=== PATIENT | male | born 1940 | race Caucasian/White ===

== ENCOUNTER 2024-06-17 19:45 | Observation (INO) | payer MEDICARE, SELFPAY ==
[2024-06-17 19:55] VITALS: BP 134/58; PULSE 83; RESP 17; TEMP 37; O2SAT 96
--- NOTE | 2024-06-17 19:56 | ECG_ITS ---
Test Reason : NEAR SYNCOPE Blood Pressure : / mmHG Vent. Rate : 091 BPM Atrial Rate : 092 BPM P-R Int : 144 ms QRS Dur : 104 ms QT Int : 368 ms P-R-T Axes : 058 000 079 degrees QTc Int : 452 ms Normal sinus rhythm Normal ECG When compared with ECG of 27-OCT-2003 15:25, No significant change was found Referred By: Generic ED Physician Electronically Signed By:ANGELA MCGINNIS MD
[2024-06-17 20:07] LABS: MANUAL DIFF FLAG NO
[2024-06-17 20:08] LABS: Basophils Absolute Auto 0.1 X10*3/uL (0.0-0.2); Basophils Percent Auto 0.7 % (0-2); Eosinophils Absolute Auto 0.3 X10*3/uL (0.0-0.4); Eosinophils Percent Auto 1.9 % (0-4); Hemoglobin 10.2 g/dl (14.0-18.0); Imm Gran Abs Auto 0.64 X10*3/uL (0.00-0.03); Imm Gran Pct Auto 3.7 % (0.0-0.4); Lymphocytes Absolute Auto 3.2 X10*3/uL (1.2-4.9); Lymphocytes Percent Auto 18.9 % (20-40); Mean Corpuscular Hemoglobin 31.3 pg (27.0-33.0); Mean Platelet Volume 8.6 fL (9.4-12.4); Monocytes Absolute Auto 1.1 X10*3/uL (0.1-1.2); Monocytes Percent Auto 6.3 % (2-11); Neutrophils Absolute Auto 11.7 x10*3/uL (2.0-8.3); Neutrophils Percent Auto 68.5 % (45-73); Platelet Count 421 X10*3/uL (160-400); Red Blood Count 3.26 X10*6/uL (4.60-5.80); Red Cell Distribution Width 13.5 % (11.0-16.0); White Blood Count 17.1 X10*3/uL (4.8-10.8)
[2024-06-17 20:10] VITALS: BP 134/78; PULSE 80; O2SAT 99; BMI 28.1
[2024-06-17 20:24] LABS: Alanine Aminotransferase 59 U/L (0-40); Albumin Level 3.5 g/dL (3.5-5.0); Alkaline Phosphatase 57 U/L (39-117); Anion Gap 12 (12-20); Aspartate Amino Transferase 31 U/L (5-37); Bilirubin Total 0.3 mg/dL (0.0-1.0); Blood Urea Nitrogen 26 mg/dL (9-16); Calcium 8.7 mg/dL (8.4-10.2); Carbon Dioxide 28 mmol/L (22-29); Chloride 102 mmol/L (96-108); Estimated Glomerular Filt Rate 39; Glucose Random 226 mg/dL (60-115); Potassium 5.2 mmol/L (3.3-5.1); Sodium 137 mmol/L (135-145); Total Protein 6.2 g/dL (6.5-8.0)
[2024-06-17 20:31] LABS: Troponin-I High Sensitivity 33.6 ng/L (<3.5-35.0)
[2024-06-17 20:47] LABS: B Type Natriuretic Peptide 172 pg/mL (<100)
--- NOTE | 2024-06-17 21:55 | ED.GENADULT ---
HPI - General Adult General Chief complaint: Arrhythmia/Palpitations Stated complaint: near syncope,hx afib Time Seen by Provider: 06/17/24 20:10 History of Present Illness HPI narrative: Patient is an elderly male with a history of previous atrial fibrillation was on Eliquis up until about a week ago. History of having a bladder growth. Positive history of diabetes, smoking, hypertension. Presented today while sitting in the kitchen table patient got very lightheaded. Family took down his blood pressure it was question 78/75. Was also noted to have a heart rate of approximately 140. Patient's family called EMS. On EMS arrival the symptoms already improved in the heart rate was never that high patient came in for further evaluation denies any blood in the stool. Denies any fever chills. Denies any chest pain or diaphoresis. Denies any leg swelling. Patient is from home. Related Data Allergies Allergy/AdvReac Type Severity Reaction Status Date / Time atorvastatin [Lipitor] Allergy Unknown Unknown Verified 06/17/24 20:15 No Known Allergies Allergy Unverified 04/16/20 14:38 [No Known Allergies*] Review of Systems Review of Systems: Positive palpitation Positive weakness My system PMFSH Past Medical History Attestation statement: The following information was validated with the patient. Social History Social History Smoked in Last 30 Days: Yes Use of substances other than those prescribed or required for medical reasons: No Advance Directives: No Advance Directives Information Provided: No Do you have a plan to hurt others: No Plan Physical Exam ED Vital Signs: Vital Signs - 24 hr 06/17/24 19:55 06/17/24 22:16 Temperature 98.6 F 97.8 F Pulse Rate 83 81 Respiratory Rate 17 17 Blood Pressure 134/58 L 140/66 H Pulse Oximetry 96 95 Oxygen Delivery Method Room Air Room Air BMI result Body Mass Index 28.1 Appearance: Alert. Oriented X3. No acute distress. Eyes: Pupils equal, round and reactive to light. ENT: Pharynx normal. Neck: Normal inspection. Neck supple. No lymph nodes noted. No crepitus CVS: Normal heart rate and rhythm. Pulses normal. Normal S1 and S2 Respiratory: No respiratory distress. Breath sounds normal. No Wheezing. No rales Abdomen: Soft and nontender. No rigidity. No distention. good BS x4 Skin: Skin warm and dry. Normal skin color. Normal skin turgor. Extremities: No lower extremity edema. Neurovascular intact to all extremities. No Lacerations. No Rash Neuro: Oriented X 3. No motor deficit. No sensory deficit. Moving all extermities. No slurred speech Medical Decision Making Medical Decision Making MDM Narrative: Positive episodes of hypotension with increased heart rate. Will most likely require admission as patient had near syncopal episode. Patient creatinine was mildly elevated there is no baseline to compare. Patient's BNP is normal at 170. Hemoglobin is 10.2 no gross anemia. His troponin is 33.6. Differential Diagnosis Differential Diagnoses: The differential diagnosis associated with the presentation includes ACS, arrhythmia Admission/Observation Consideration of admission/observation: Escalation of care including admission/observation considered Consult Healthcare Provider Management of the patient was discussed with: Hospitalist Lab Data [facility] Lab Attestation statement: I reviewed the patient's lab results. 06/17/24 20:02 06/17/24 20:02 Labs: Lab Results 06/17/24 Range/Units 20:02 WBC 17.1 H (4.8-10.8) X10*3/uL RBC 3.26 L (4.60-5.80) X10*6/uL Hgb 10.2 L (14.0-18.0) g/dl Hct 30.0 L (42.0-52.0) % MCV 92.0 (80.0-98.0) fL MCH 31.3 (27.0-33.0) pg MCHC 34.0 (31.0-36.0) g/dl RDW 13.5 (11.0-16.0) % Plt Count 421 H (160-400) X10*3/uL MPV 8.6 L (9.4-12.4) fL Immature Gran % (Auto) 3.7 H (0.0-0.4) % Neut % (Auto) 68.5 (45-73) % Lymph % (Auto) 18.9 L (20-40) % [place] % (Auto) 6.3 (2-11) % Eos % (Auto) 1.9 (0-4) % Baso % (Auto) 0.7 (0-2) % Lymph # (Auto) 3.2 (1.2-4.9) X10*3/uL [place] # (Auto) 1.1 (0.1-1.2) X10*3/uL Eos # (Auto) 0.3 (0.0-0.4) X10*3/uL Baso # (Auto) 0.1 (0.0-0.2) X10*3/uL Abs Immat Gran (auto) 0.64 H (0.00-0.03) X10*3/uL Absolute Neuts (auto) 11.7 H (2.0-8.3) x10*3/uL Absolute Nucleated RBC 0.000 (0.0-0.012) X10*3/uL Nucleated RBC % (auto) 0.0 (0.0-0.2) /100WBC Sodium 137 (135-145) mmol/L Potassium 5.2 H (3.3-5.1) mmol/L Chloride 102 (96-108) mmol/L Carbon Dioxide 28 (22-29) mmol/L Anion Gap 12 (12-20) BUN 26 H (9-16) mg/dL Creatinine 1.70 H (0.5-1.4) mg/dL Estim Creat Clear Calc 38.0 Estimated GFR 39 Random Glucose 226 H (60-115) mg/dL Calcium 8.7 (8.4-10.2) mg/dL Total Bilirubin 0.3 (0.0-1.0) mg/dL AST 31 (5-37) U/L ALT 59 H (0-40) U/L Alkaline Phosphatase 57 (39-117) U/L Troponin I High Sens 33.6 (<3.5-35.0) ng/L B-Natriuretic Peptide 172 H (<100) pg/mL Total Protein 6.2 L (6.5-8.0) g/dL Albumin 3.5 (3.5-5.0) g/dL Independent Interpretation I performed an independent interpretation of an: EKG (Sinus heart rate is 90 ND QRS QTC normal no acute ST segment elevation) Radiology Impression Discussion of test interpretation with radiology: I have reviewed the radiologist's reading. Independent Historian Clinical information obtained from an independent historian. History obtained from or confirmed by: Spouse External Record Review External record reviewed: Inpatient record Chronic Conditions Patient?s care impacted by: Hypertension Discharge Plan Discharge Clinical Impression: Near syncope Patient Disposition: Admitted As Inpatient Print Language: Haitian
[2024-06-17 22:16] VITALS: BP 140/66; PULSE 81; RESP 17; TEMP 36.6; O2SAT 95
--- NOTE | 2024-06-17 23:10 | P.HPHOSP_ITS ---
History of Present Illness Date of Service: 06/17/24 Chief Complaint: Palpitations This is a 84-year-old male with pertinent history of congestive heart failure with reduced ejection fraction, atrial fibrillation on Eliquis, mtg-pygjrej-ebujdctmb diabetes mellitus, mixed hyperlipidemia, BPH, bladder mass who presents to the emergency department for evaluation of palpitations. Patient states while he was sitting in chair he had an episode of dizziness. He felt like he would pass out. Endorses associated palpitations. States his blood pressure was low and the daughter states that the blood pressure was 78/75 with heart rate in the 140s. EMS was called but upon EMS arrival blood pressure and heart rate were within normal limits. No rhythmic jerking movement of extremities or tongue bite. No chest pain. Patient states this has happened before but the blood pressure today was lower than before. He was diagnosed with UTI 3 days prior to presentation and started on p.o. cefpodoxime. Also has a bladder mass and is scheduled for cystoscopy with biopsy end of the week. No fever, chills, cough, nausea, vomiting, abdominal pain or changes in bowel habits. In the emergency department, WBC 17.1 and creatinine 1.7 Review of Systems 2 Constitutional: Constitutional: Reports fatigue and Reports malaise ENT: Reports dizziness Cardiovascular: Cardiovascular: Reports rapid heart rate Respiratory: Respiratory: Reports no additional respiratory complaints Gastrointestinal: Gastrointestinal: Reports no additional gastrointestinal complaints Genitourinary: Genitourinary: Reports no additional male genitourinary complaints Neurologic: Reports dizziness Endocrine: Endocrine: Reports fatigue [facility] Medical History Mixed hyperlipidemia BPH (benign prostatic hyperplasia) Systolic congestive heart failure Non-insulin dependent type 2 diabetes mellitus Atrial fibrillation Bladder mass Pertinent family history: Not significant due to age Social History Smoked in Last 30 Days: Yes Use of substances other than those prescribed or required for medical reasons: No Advance Directives: No Advance Directives Information Provided: No Do you have a plan to hurt others: No Plan Meds Allergies Allergy/AdvReac Type Severity Reaction Status Date / Time atorvastatin [Lipitor] Allergy Unknown Unknown Verified 06/17/24 20:15 No Known Allergies Allergy Unverified 04/16/20 14:38 [No Known Allergies*] Active Medications: Current Medications Sodium Chloride (Ns) 500 mls @ 500 mls/hr IV .Q1H BRYAN Stop: 06/18/24 00:14 Sodium Zirconium Cyclosilicate (Sodium Zirconium Cyclosilicate 10 Gm Powd.Pack) 10 gm PO ONCE ONE Stop: 06/17/24 23:09 Physical Exam 2 Vital Signs and Narrative: Vital Signs: Last Vital Signs Temp 97.8 F 06/17/24 22:16 Pulse 81 06/17/24 22:16 Resp 17 06/17/24 22:16 BP 140/66 H 06/17/24 22:16 Pulse Ox 95 06/17/24 22:16 O2 Del Method Room Air 06/17/24 22:16 BMI result Body Mass Index 28.1 Elderly male lying in bed in no distress Neck supple, no JVD Irregularly irregular, S1-S2 heard Regular breath sounds bilaterally, no wheezing or crackles appreciated Abdomen soft nontender, no guarding, no rigidity, Dowlign catheter in place Patient is awake, alert and oriented to self, place, time and person ; no focal motor deficit Psych: Normal mood No pedal edema Results Labs 06/17/24 20:02 06/17/24 20:02 Labs: Laboratory Results - last 24 hr 06/17/24 20:02 MCV 92.0 MCH 31.3 MCHC 34.0 RDW 13.5 Plt Count 421 H MPV 8.6 L Immature Gran % (Auto) 3.7 H Neut % (Auto) 68.5 Lymph % (Auto) 18.9 L [place] % (Auto) 6.3 Eos % (Auto) 1.9 Baso % (Auto) 0.7 Lymph # (Auto) 3.2 [place] # (Auto) 1.1 Eos # (Auto) 0.3 Baso # (Auto) 0.1 Abs Immat Gran (auto) 0.64 H Absolute Neuts (auto) 11.7 H Absolute Nucleated RBC 0.000 Nucleated RBC % (auto) 0.0 Anion Gap 12 Estim Creat Clear Calc 38.0 Estimated GFR 39 Random Glucose 226 H Calcium 8.7 Total Bilirubin 0.3 AST 31 ALT 59 H Alkaline Phosphatase 57 Troponin I High Sens 33.6 B-Natriuretic Peptide 172 H Total Protein 6.2 L Albumin 3.5 Assessment and Plan (1) Near syncope: Status: Acute (2) Palpitations: Status: Acute Plan This is a 84-year-old male with pertinent history of congestive heart failure with reduced ejection fraction, atrial fibrillation on Eliquis, rho-xyyukyz-xuuqwkhcf diabetes mellitus, mixed hyperlipidemia, BPH, bladder mass who presents to the emergency department for evaluation of palpitations. #. Palpitations with presyncope: Will admit patient with cardiac monitoring for observation. Consulted Cardiology, appreciate assistance #. Gyh-xjjpkjg-mokzacafm diabetes mellitus with hyperglycemia: Initiating Accu-Cheks with sliding scale insulin #. Elevated creatinine: Unknown baseline. LUIZ versus CKD. Monitor creatinine urine output with IV crystalloid resuscitation. Avoid nephrotoxins #. Hyperkalemia: Given Lokelma #. Leukocytosis: Likely reactive. Obtaining x-ray and repeat UA. Is on cefpodoxime for recently diagnosed UTI #. Congestive heart failure with reduced EF: No decompensation during admission. #. Atrial fibrillation: Rate controlled in the ER. On Eliquis #. BPH: On Flomax #. Mixed hyperlipidemia: On statin #. Bladder mass: Is scheduled for cystoscopy with biopsy on 06/21 #. UTI: Recently diagnosed with UTI on 06/14 and is on cefpodoxime Med rec pending DVT prophylaxis: Eliquis Full code Quality Stroke Does the patient have a stroke diagnosis?: No VTE Prior VTE?: No VTE Risk Level:: Medical - moderate - high VTE Device Contraindication: Treatment Not Indicated VTE Drug Contraindication: N/A - Med Ordered
[2024-06-17] MEDS: Sodium Zirconium Cyclosilicate 10 GM POWD.PACK PO (23:46)
--- NOTE | 2024-06-18 00:02 | PC.NURSE ---
Pt aox4 resting at the bedside. Medicated with Lokelma as ordered. Pt refuse to have IV line placed and start fluids. Monitoring is ongoing.
[2024-06-18 02:50] LABS: Appearance Urine Clear; Color Urine Yellow; Glucose Urine UA Negative (Negative); Leukocyte Esterase Urine Small (1+) (Negative); Nitrite Urine Negative (Negative); Specific Gravity - Urine 1.015 (1.005-1.025); UMIC TRIGGER UACC YES; Urine Blood Large (3+) (Negative); Urine Ketones Negative (Negative); Urine Protein 100 (2+) mg/dL (Neg-Trace)
[2024-06-18 03:15] LABS: Bacteria Urine 4+ (None Seen); UACC Culture Trigger YES
[2024-06-18 05:37] LABS: MANUAL DIFF FLAG NO
[2024-06-18 05:40] LABS: Basophils Absolute Auto 0.1 X10*3/uL (0.0-0.2); Basophils Percent Auto 0.6 % (0-2); Eosinophils Absolute Auto 0.5 X10*3/uL (0.0-0.4); Eosinophils Percent Auto 3.2 % (0-4); Hematocrit 29.1 % (42.0-52.0); Hemoglobin 9.6 g/dl (14.0-18.0); Imm Gran Abs Auto 0.34 X10*3/uL (0.00-0.03); Imm Gran Pct Auto 2.2 % (0.0-0.4); Lymphocytes Absolute Auto 3.8 X10*3/uL (1.2-4.9); Lymphocytes Percent Auto 24.7 % (20-40); Mean Corpuscular Volume 90.9 fL (80.0-98.0); Mean Platelet Volume 8.7 fL (9.4-12.4); Monocytes Percent Auto 6.5 % (2-11); Neutrophils Absolute Auto 9.7 x10*3/uL (2.0-8.3); Neutrophils Percent Auto 62.8 % (45-73); Platelet Count 401 X10*3/uL (160-400); Red Cell Distribution Width 13.4 % (11.0-16.0); White Blood Count 15.5 X10*3/uL (4.8-10.8)
[2024-06-18 05:53] LABS: Anion Gap 14 (12-20); Blood Urea Nitrogen 25 mg/dL (9-16); Carbon Dioxide 25 mmol/L (22-29); Chloride 104 mmol/L (96-108); Creatinine Clr Calc Pharmacy 55.2; Estimated Glomerular Filt Rate 60; Glucose Random 141 mg/dL (60-115); Potassium 4.3 mmol/L (3.3-5.1); Sodium 139 mmol/L (135-145)
[2024-06-18 07:40] VITALS: BP 155/66; PULSE 79; RESP 16; TEMP 37; O2SAT 98
[2024-06-18 07:46] LABS: Glucose, Whole Blood 147 mg/dL (60-115)
--- NOTE | 2024-06-18 07:53 | PC.NURSE ---
Pt continues to refuse IV line. Pt educated on need to give medications through IV line, continues to refuse. Will reassess.
[2024-06-18 09:37] VITALS: BP 165/74; PULSE 75
[2024-06-18] MEDS: Metoprolol Succinate ER 100 MG TAB.ER.24H PO (09:37)
--- NOTE | 2024-06-18 09:39 | PHA.MEDREC ---
Addendum entered by Francisco Churchill 06/18/24 09:55: reviewed Original Note: Pharmacy Consult ? Medication Reconciliation Pharmacy has completed the medication reconciliation. Spoke to patient and at bedside to confirm med list. had a list of patients medications. Patient states he is no longer taking Tamsulosin 0.4 mg. Patient states he is scheduled for surgery on Monday06/21/24 so he was to stop his medications 10 days prior to surgery. Eliquis was put on hold last taken 06/04/24. The patient has only been taking Cefpodoxime 200 mg, End date 06/24 Metoprolol succ 100 mg , Trillegy Ellipta and Entreso 24mg/26mg
--- NOTE | 2024-06-18 10:53 | PM.CNCAR ---
History of Present Illness History of Present Illness Date of Service: 06/18/24 Consult reason: other ( near-syncope, tachycardia) Chief complaint: Palpitations Narrative: I was consulted to see Leonardo in cardiology consultation today as he came to the hospital yesterday after having rapid onset heart rate in the 140s and low blood pressure and got lightheaded. Patient 84-year-old male with prior history of paroxysmal atrial fibrillation currently not on any antiarrhythmic drug, heart failure with improved ejection fraction with most recent echocardiogram 2 years ago at [facility] showing LVEF of 50-55%, noninsulin requiring diabetes. Has been followed by [facility] and recently had seen nurse practitioner in cardiology clinic and had complain of increased leg swelling and weight gain and was prescribed torsemide 20 mg. He said the 1st time he took torsemide he had a significant diuresis and lost about 9 lb at home and got lightheaded at that point time. Subsequently yesterday again took torsemide 20 mg as he was retaining fluid and then in the afternoon had rapid heart rate along with lightheadedness. By time EMS came to the home his heart rate and blood pressure had improved. He said daughter recorded blood pressure in the 70s. He had no syncopal episodes. He has been taking all his medications. He is currently wearing event monitor and was wearing it while he was having any event but has not heard back anything from the monitoring company or from his frit mixer and burner's office. He has been taking his oral anticoagulation regularly. Review of Systems Constitutional: Constitutional: Reports no additional constitutional complaints Cardiovascular: Cardiovascular: Reports rapid heart rate, Reports leg edema, Reports lightheadedness, Reports palpitations and Reports dyspnea on exertion Respiratory: Respiratory: Reports no additional respiratory complaints and Reports dyspnea on exertion Gastrointestinal: Gastrointestinal: Reports no additional gastrointestinal complaints Genitourinary: Genitourinary: Reports no additional male genitourinary complaints Musculoskeletal: Musculoskeletal: Reports no additional musculoskeletal complaints Integumentary/Breasts: Skin/Breast: Reports system reviewed and no additional complaints, except as docu Psychiatric: Psychiatric: Reports no additional psychiatric complaints Endocrine: Endocrine: Reports palpitations PMFSH Past Medical History Medical History Mixed hyperlipidemia BPH (benign prostatic hyperplasia) Systolic congestive heart failure Non-insulin dependent type 2 diabetes mellitus Atrial fibrillation Bladder mass Social History Social History Patient Tobacco Use Status: Tobacco use Unknown Smoked in Last 30 Days: Yes Use of substances other than those prescribed or required for medical reasons: No Advance Directives: No Advance Directives Information Provided: No Do you have a plan to hurt others: No Plan Nutrition Risks: No Nutritional Risk Meds Allergies Allergy/AdvReac Type Severity Reaction Status Date / Time atorvastatin [Lipitor] Allergy Unknown Unknown Verified 06/17/24 20:15 No Known Allergies Allergy Verified 06/18/24 08:12 [No Known Allergies*] Active Medications: Current Medications Acetaminophen (Acetaminophen 325 Mg Tablet) 650 mg PO Q6H PRN PRN Reason: Pain, Mild (Pain Scale 1-3), fever or headache Albuterol Sulfate (Albuterol Sulfate 90 Mcg 8 Gm Inhaler) 1 puff INHALE QID PRN PRN Reason: Shortness Of Breath Or Wheezing Apixaban (Apixaban 5 Mg Tablet) 5 mg PO BID [facility] Last Admin: 06/18/24 09:38 Dose: Not Given Aspirin (Aspirin Enteric Coated 81 Mg Tablet.Dr) 81 mg PO DAILY [facility] Atorvastatin Calcium (Atorvastatin Calcium 40 Mg Tablet) 40 mg PO BEDTIME [facility] Calcium Carbonate (Calcium Carbonate 750 Mg Tab.Chew) 750 mg PO Q4H PRN PRN Reason: Heartburn Cyanocobalamin (Cyanocobalamin (Vitamin B-12) 500 Mcg Tablet) 500 mcg PO DAILY [facility] Doxazosin Mesylate (Doxazosin Mesylate 2 Mg Tablet) 4 mg PO BEDTIME [facility]; Protocol Fluticasone/Umeclidinium/Vilanterol (Fluticasone/Umeclidinium/Vilanterol 200/62.5/25 Blst.W.Dev) 1 puff INHALE DAILY [facility] Glipizide (Glipizide 5 Mg Tablet) 5 mg PO BID [facility] Glucose (Glucose Gel 15 Gm Gel..Gram.) 15 gm PO Q15M PRN; Protocol PRN Reason: per Hypoglycemia Standing Ord. Dextrose (D10) 250 mls @ 750 mls/hr IV Q15M PRN; Protocol PRN Reason: per Hypoglycemia Standing Ord. Insulin Human Lispro (Insulin Lispro 100 Unit/Ml 3 Ml Vial) 0 unit SUBCUT QIDACHS [facility]; Protocol Last Admin: 06/18/24 07:47 Dose: Not Given Magnesium Hydroxide (Milk Of Magnesia 30 Ml Oral.Susp) 30 ml PO DAILY PRN PRN Reason: Constipation Melatonin (Melatonin 3 Mg Tablet) 6 mg PO BEDTIME PRN PRN Reason: Insomnia Metoprolol Succinate (Metoprolol Succinate Er 100 Mg Tab.Er.24h) 100 mg PO DAILY [facility]; Protocol Last Admin: 06/18/24 09:37 Dose: 100 mg Multivitamins/Vitamin C (Multivitamin Tablet) 1 tab PO DAILY [facility] Non-Formulary Medication (Cefpodoxime) 200 mg PO BID [facility] Ondansetron HCl (Ondansetron Hcl 4 Mg/2 Ml Vial) 4 mg IVPUSH Q8H PRN PRN Reason: Nausea and Vomiting Sacubitril/Valsartan (Sacubitril/Valsartan 1 Tab Tablet) 1 tab PO BID [facility]; Protocol Sodium Chloride (0.9 % Sodium Chloride Flush 3 Ml Syringe) 3 ml IVFLUSH QSHIFT [facility] Last Admin: 06/18/24 09:33 Dose: Not Given Torsemide (Torsemide 20 Mg Tablet) 20 mg PO DAILY PRN; Protocol PRN Reason: Weight Gain Home Medications ?Medication ?Instructions ?Recorded ?Confirmed ?Last Taken ?Type albuterol sulfate 90 mcg/actuation 1 inh inhalation QID PRN Shortness 06/18/24 Unknown History aerosol inhaler (Ventolin HFA) Of Breath Or Wheezing apixaban 5 mg tablet (Eliquis) 5 mg BID 06/18/24 06/04/24 History aspirin 81 mg tablet,delayed 81 mg PO DAILY 06/18/24 06/04/24 History release cefpodoxime 200 mg tablet 200 mg PO BID 06/18/24 06/18/24 06/16/24 History cyanocobalamin (vitamin B-12) 500 500 mcg PO DAILY 06/18/24 Unknown History mcg tablet (Vitamin B-12) doxazosin 4 mg tablet 4 mg BEDTIME 06/18/24 Unknown History fluticasone fur. 200 mcg-umeclid 1 ea inhalation DAILY 06/18/24 06/16/24 History 62.5 mcg-vilant 25 mcg inhalat.powder (Trelegy Ellipta) glipizide 5 mg tablet 5 mg PO BID 06/18/24 Unknown History metoprolol succinate 100 mg 100 mg PO BEDTIME 06/18/24 06/18/24 06/16/24 History tablet,extended release 24 hr multivitamin 1 tab PO DAILY 06/18/24 Unknown History rosuvastatin 10 mg tablet 10 mg PO BEDTIME 06/18/24 Unknown History sacubitril 24 mg-valsartan 26 mg 1 tab PO BID 06/18/24 06/18/24 Unknown History tablet (Entresto) spironolactone 25 mg tablet 25 mg PO DAILY 06/18/24 06/16/24 History torsemide 20 mg tablet 20 mg PO DAILY PRN Weight Gain 06/18/24 Unknown History Physical Exam Vital Signs: Vital Signs: Last Vital Signs Temp 98.6 F 06/18/24 07:40 Pulse 75 06/18/24 09:37 Resp 16 06/18/24 07:40 BP 165/74 H 06/18/24 09:37 Pulse Ox 98 06/18/24 07:40 O2 Del Method Room Air 06/18/24 07:40 BMI result Body Mass Index 28.1 Const: General: cooperative, comfortable, no acute distress, alert, awake and Physically active Nutritional Appearance: average body habitus Orientation/consciousness: patient oriented x3 Limitations: no limitations HEENT: Head: Yes normocephalic and Yes atraumatic Neck: Neck: Yes trachea midline, Yes supple and Yes no JVD Resp: Effort & Inspection: normal respiratory effort Auscultation: clear to auscultation bilaterally Cardio: Jugular venous distension: no JVD Palpation: normal PMI Rate: regular rate Rhythm: regular rhythm Heart sounds: S1 normal heart sound present, S2 normal heart sound present, no click, no gallops and no murmurs GI: Auscultation: normal bowel sounds Skin: General skin exam: no rashes or lesions noted Neuro: General: patient oriented x3 and no focal motor deficits Extrem: General: Yes no clubbing, cyanosis or edema Objective Labs and Meds 06/18/24 05:23 06/18/24 05:23 Lab results: Laboratory Results - last 24 hr 06/17/24 06/18/24 06/18/24 20:02 02:45 05:23 WBC 17.1 H 15.5 H RBC 3.26 L 3.20 L Hgb 10.2 L 9.6 L Hct 30.0 L 29.1 L MCV 92.0 90.9 MCH 31.3 30.0 MCHC 34.0 33.0 RDW 13.5 13.4 Plt Count 421 H 401 H MPV 8.6 L 8.7 L Immature Gran % (Auto) 3.7 H 2.2 H Neut % (Auto) 68.5 62.8 Lymph % (Auto) 18.9 L 24.7 [place] % (Auto) 6.3 6.5 Eos % (Auto) 1.9 3.2 Baso % (Auto) 0.7 0.6 Lymph # (Auto) 3.2 3.8 [place] # (Auto) 1.1 1.0 Eos # (Auto) 0.3 0.5 H Baso # (Auto) 0.1 0.1 Abs Immat Gran (auto) 0.64 H 0.34 H Absolute Neuts (auto) 11.7 H 9.7 H Absolute Nucleated RBC 0.000 0.000 Nucleated RBC % (auto) 0.0 0.0 Sodium 137 139 Potassium 5.2 H 4.3 Chloride 102 104 Carbon Dioxide 28 25 Anion Gap 12 14 BUN 26 H 25 H Creatinine 1.70 H 1.17 Estim Creat Clear Calc 38.0 55.2 Estimated GFR 39 60 POC Glucose Random Glucose 226 H 141 H Calcium 8.7 9.0 Total Bilirubin 0.3 AST 31 ALT 59 H Alkaline Phosphatase 57 Troponin I High Sens 33.6 B-Natriuretic Peptide 172 H Total Protein 6.2 L Albumin 3.5 Urine Color Yellow Urine Appearance Clear Urine pH 7.0 Ur Specific [place] 1.015 Urine Protein 100 (2+) H Urine Glucose (UA) Negative Urine Ketones Negative Urine Blood Large (3+) H Urine Nitrite Negative Ur Leukocyte Esterase Small (1+) H Urine RBC 11-20 H Urine WBC 6-10 H Ur Squamous Epith Cells 3-5 Urine Bacteria 4+ Hyaline Casts 11-06/18/24 07:39 WBC RBC Hgb Hct MCV MCH MCHC RDW Plt Count MPV Immature Gran % (Auto) Neut % (Auto) Lymph % (Auto) [place] % (Auto) Eos % (Auto) Baso % (Auto) Lymph # (Auto) [place] # (Auto) Eos # (Auto) Baso # (Auto) Abs Immat Gran (auto) Absolute Neuts (auto) Absolute Nucleated RBC Nucleated RBC % (auto) Sodium Potassium Chloride Carbon Dioxide Anion Gap BUN Creatinine Estim Creat Clear Calc Estimated GFR POC Glucose 147 H Random Glucose Calcium Total Bilirubin AST ALT Alkaline Phosphatase Troponin I High Sens B-Natriuretic Peptide Total Protein Albumin Urine Color Urine Appearance Urine pH Ur Specific [place] Urine Protein Urine Glucose (UA) Urine Ketones Urine Blood Urine Nitrite Ur Leukocyte Esterase Urine RBC Urine WBC Ur Squamous Epith Cells Urine Bacteria Hyaline Casts Assessment and Plan (1) Palpitations: Status: Acute patient with symptoms of palpitation rapid heart rate along with low blood pressure near-syncope. Possibility of recurrent atrial arrhythmias such as atrial flutter / fibrillation is likely. Ventricular arrhythmias a less likely. He was very event monitor while he was having these symptoms and this should be extremely helpful. His near-syncope might have been due to low stroke volume from over diuresis. I have advised him to reduce his torsemide when needed to 10 mg and/or switch to lesser reporting diuretic such as furosemide 20 mg as needed. See below. Further treatment based on finding of event monitoring. (2) Paroxysmal atrial fibrillation: Status: Acute Prior history of atrial fibrillation, could have recurrent atrial fibrillation flutter. Event monitor findings will help for further management. May need an antiarrhythmic drug therapy. Continue full oral anticoagulation Eliquis. Avoidance of stimulants was discussed. (3) Heart failure with improved ejection fraction (HFimpEF): Status: Acute Heart failure with improved ejection fraction with recent redevelopment of heart failure syndrome. I would think that if he is using p.r.n. diuretic use a less reported diuretic such as furosemide. Continue other neurohormonal modulators such as Entresto, metoprolol, spironolactone as prescribed. Can consider use of SGLT2 inhibitor therapy. Encouraged to continue to follow-up with his frit mixer and burner's office. Will sign off from care. Patient can be discharged home from our perspective Procedures Date of Service Date of Service: 06/18/24
[2024-06-18 11:43] VITALS: BP 169/78; PULSE 68; RESP 17; TEMP 36.9; O2SAT 98
--- NOTE | 2024-06-18 11:44 | PM.DS ---
DS: Providers Provider Date of Service: 06/18/24 Date of admission: 06/17/24 23:09 Date of discharge: 06/18/24 Primary care physician: Unknown Physician Consults: 06/17/24 23:14 Consult to Cardiology Routine Consulting Provider: [facility] Reason for consultation: dizziness, palpitation DS: Diagnosis Discharge Diagnosis (1) Palpitations: Status: Acute (2) Paroxysmal atrial fibrillation: Status: Acute (3) Heart failure with improved ejection fraction (HFimpEF): Status: Acute (4) Near syncope: Status: Acute DS: Summary Hospital Course Hospital Course: Admission note HPI This is a 84-year-old male with pertinent history of congestive heart failure with reduced ejection fraction, atrial fibrillation on Eliquis, [id number] diabetes mellitus, mixed hyperlipidemia, BPH, bladder mass who presents to the emergency department for evaluation of palpitations. Patient states while he was sitting in chair he had an episode of dizziness. He felt like he would pass out. Endorses associated palpitations. States his blood pressure was low and the daughter states that the blood pressure was 78/75 with heart rate in the 140s. EMS was called but upon EMS arrival blood pressure and heart rate were within normal limits. No rhythmic jerking movement of extremities or tongue bite. No chest pain. Patient states this has happened before but the blood pressure today was lower than before. He was diagnosed with UTI 3 days prior to presentation and started on p.o. cefpodoxime. Also has a bladder mass and is scheduled for cystoscopy with biopsy end of the week. No fever, chills, cough, nausea, vomiting, abdominal pain or changes in bowel habits. Hospital course The patient was observed in the hospital with incident of Palpitations with presyncope and low blood pressure. The patient reports recurrent episodes of hypotension at home that was invistigated by his primary cardiology team. he is on cardiac monitoring at home for the reported palpitations and will be send back to his cardiology office of interpretation. Monitored on Tele with no abnormal rhythm noted. no recurrence of the pre-syconpe incident. he was able to ambulate with no reported concerns by nursing staff. Given his mild kidney injury it seems he was overdiuresed and mildly dehydrated causing the drop in BP and near syncope event. Noted to have mildly Elevated creatinine which recovered back to normal values with IV crystalloid resuscitation and Lokelma. Has Leukocytosis which seems reactive as no fever or any other symptoms to suggest acute infection as x-ray negative and repeat UA showing possibie UTI\colonization given chronic cath. He is on cefpodoxime for recently diagnosed UTI which will continue on discharge. Given 1 dose Ceftriaxone inpatient. Cardiology evaluated the patient and recommended decrease PRN Torsemide to 10 mg and consider switching to Lasix. Consider SGLT2 inh by primary cardiology team. Avoid stimulants to avoid palpitations. Discharge plan Decrease Torsemide to 10 mg as needed for fluid overload Follow with cardiology as outpatient for cardiac monitoring device Avoid stimulants; Coffee\tea Time Attestation Discharge Coordination Time (in mins): 24 Quality: Safe Use of Opioids Does Pt have an Active Cancer Diagnosis on the Problem List?: No Quality: Stroke Does the patient have a stroke diagnosis?: No Physical Exam Vital Signs: Vital Signs: Last Vital Signs Temp 98.6 F 06/18/24 07:40 Pulse 75 06/18/24 09:37 Resp 16 06/18/24 07:40 BP 165/74 H 06/18/24 09:37 Pulse Ox 98 06/18/24 07:40 O2 Del Method Room Air 06/18/24 07:40 BMI result Body Mass Index 28.1 Const: Other: Constitutional : Awake, interactive, not in distress Neck : Normal inspection, Supple Cardiovascular : RRR, no JVP, no lower extremity edema Respiratory : good bilateral air entry, no crackles, wheezes or rhonchi Gastrointestinal: soft, lax, Normal bowel sounds, Non tender Skin : Warm, Dry Neurological : Alert & oriented x3, No focal deficit DS: Data Data Completed and Pending Labs on day of discharge: Laboratory Results - last 24 hr 06/17/24 06/18/24 06/18/24 20:02 02:45 05:23 WBC 17.1 H 15.5 H RBC 3.26 L 3.20 L Hgb 10.2 L 9.6 L Hct 30.0 L 29.1 L MCV 92.0 90.9 MCH 31.3 30.0 MCHC 34.0 33.0 RDW 13.5 13.4 Plt Count 421 H 401 H MPV 8.6 L 8.7 L Immature Gran % (Auto) 3.7 H 2.2 H Neut % (Auto) 68.5 62.8 Lymph % (Auto) 18.9 L 24.7 [place] % (Auto) 6.3 6.5 Eos % (Auto) 1.9 3.2 Baso % (Auto) 0.7 0.6 Lymph # (Auto) 3.2 3.8 [place] # (Auto) 1.1 1.0 Eos # (Auto) 0.3 0.5 H Baso # (Auto) 0.1 0.1 Abs Immat Gran (auto) 0.64 H 0.34 H Absolute Neuts (auto) 11.7 H 9.7 H Absolute Nucleated RBC 0.000 0.000 Nucleated RBC % (auto) 0.0 0.0 Sodium 137 139 Potassium 5.2 H 4.3 Chloride 102 104 Carbon Dioxide 28 25 Anion Gap 12 14 BUN 26 H 25 H Creatinine 1.70 H 1.17 Estim Creat Clear Calc 38.0 55.2 Estimated GFR 39 60 POC Glucose Random Glucose 226 H 141 H Calcium 8.7 9.0 Total Bilirubin 0.3 AST 31 ALT 59 H Alkaline Phosphatase 57 Troponin I High Sens 33.6 B-Natriuretic Peptide 172 H Total Protein 6.2 L Albumin 3.5 Urine Color Yellow Urine Appearance Clear Urine pH 7.0 Ur Specific [place] 1.015 Urine Protein 100 (2+) H Urine Glucose (UA) Negative Urine Ketones Negative Urine Blood Large (3+) H Urine Nitrite Negative Ur Leukocyte Esterase Small (1+) H Urine RBC 11-20 H Urine WBC 6-10 H Ur Squamous Epith Cells 3-5 Urine Bacteria 4+ Hyaline Casts 11-20 06/18/24 07:39 WBC RBC Hgb Hct MCV MCH MCHC RDW Plt Count MPV Immature Gran % (Auto) Neut % (Auto) Lymph % (Auto) [place] % (Auto) Eos % (Auto) Baso % (Auto) Lymph # (Auto) [place] # (Auto) Eos # (Auto) Baso # (Auto) Abs Immat Gran (auto) Absolute Neuts (auto) Absolute Nucleated RBC Nucleated RBC % (auto) Sodium Potassium Chloride Carbon Dioxide Anion Gap BUN Creatinine Estim Creat Clear Calc Estimated GFR POC Glucose 147 H Random Glucose Calcium Total Bilirubin AST ALT Alkaline Phosphatase Troponin I High Sens B-Natriuretic Peptide Total Protein Albumin Urine Color Urine Appearance Urine pH Ur Specific [place] Urine Protein Urine Glucose (UA) Urine Ketones Urine Blood Urine Nitrite Ur Leukocyte Esterase Urine RBC Urine WBC Ur Squamous Epith Cells Urine Bacteria Hyaline Casts Discharge Plan Discharge Anticipated Discharge Date/Time: 06/18/24 11:38 Patient Disposition: Home, Self-Care Discharge Diagnosis: Near syncope Referrals: Physician,Unknown J [Primary Care Provider] - 1 Week Discharge Medications: Continued cefpodoxime 200 mg tablet 200 mg PO BID Rx Instructions: End date 06/14/24 metoprolol succinate 100 mg tablet extended release 24 hr 100 mg PO BEDTIME spironolactone 25 mg tablet 25 mg PO DAILY doxazosin 4 mg tablet 4 mg BEDTIME glipizide 5 mg tablet 5 mg PO BID rosuvastatin 10 mg tablet 10 mg PO BEDTIME Eliquis 5 mg tablet 5 mg BID Entresto 24-26 mg tablet 1 tab PO BID multivitamin Tablet 1 tab PO DAILY aspirin 81 mg Tablet,Delayed Release (Dr/Ec) 81 mg PO DAILY cyanocobalamin (vitamin B-12) [Vitamin B-12] 500 mcg Tablet 500 mcg PO DAILY albuterol sulfate [Ventolin HFA] 90 mcg/actuation Hfa Aerosol Inhaler 1 inh INHALATION QID PRN (Reason: Shortness Of Breath Or Wheezing) Trelegy Ellipta 200-62.5-25 mcg blister with device 1 ea inhalation DAILY Changed torsemide 20 mg tablet 10 mg PO DAILY PRN (Reason: Weight Gain) Qty: 30 0RF Rx Instructions: TAKE 1/2 TABLET BY MOUTH DAILY FOR 2-3 DAYS NEEDED FOR WEIGHT GAIN > 3LBS/1-2 DAYS Discharge Orders: Discharge Order (Routine); Ordered 06/18/24 Ordered By: Dallin Baugh Diet: Low salt diet Activity on Discharge: As tolerated Stand Alone Forms: Patient Portal Discharge page Print Language: Pashto Care Plan Goals: Decrease Torsemide to 10 mg as needed for fluid overload Follow with cardiology as outpatient for cardiac monitoring device Avoid stimulants; Coffee\tea Health Concerns: Near syncope Plan of Treatment: Decrease Torsemide Follow with cardiology as outpatient Assessment: as above
[2024-06-18 11:47] LABS: Glucose, Whole Blood 221 mg/dL (60-115)
--- NOTE | 2024-06-18 12:06 | PC.NURSE ---
Pt refused med administration
[2024-06-18 12:09] VITALS: BP 169/78; PULSE 68; RESP 17; TEMP 36.9; O2SAT 98
== END 2024-06-18 12:05 | disposition home or self-care (01) ==
LOC: HO.ED 21:59 → HO.EDOVER 23:38
PROVIDERS: Admitting Provider Student in an Organized Health Care Education/Training Program; Emergency Provider Emergency Medicine Emergency Medical Services; Visit Provider Student in an Organized Health Care Education/Training Program
DX: R55 Syncope and collapse (principal); R00.2 Palpitations; I50.32 Chronic diastolic (congestive) heart failure; E11.65 Type 2 diabetes mellitus with hyperglycemia; I48.0 Paroxysmal atrial fibrillation; I10 Essential (primary) hypertension; R42 Dizziness and giddiness; E87.5 Hyperkalemia; D72.829 Elevated white blood cell count, unspecified; N39.0 Urinary tract infection, site not specified; N32.9 Bladder disorder, unspecified; E78.2 Mixed hyperlipidemia; R79.89 Other specified abnormal findings of blood chemistry; Z79.01 Long term (current) use of anticoagulants; Z79.899 Other long term (current) drug therapy
CPT/HCPCS: 36415; 80048; 80053; 81001; 82947; 83880; 84484; 85025; 87086; 87088; 87186; 93005; 99222; 99285

== ENCOUNTER → 2024-06-17 19:56 | Outpatient (BNV) | payer MEDICARE, SELFPAY | PROVIDERS: Admitting Provider Student in an Organized Health Care Education/Training Program; Emergency Provider Emergency Medicine Emergency Medical Services; Visit Provider Internal Medicine Cardiovascular Disease | DX: R00.2 Palpitations (principal) | CPT/HCPCS: 93010 ==

== ENCOUNTER → 2024-06-17 20:08 | Outpatient (BNV) | payer MEDICARE, SELFPAY | PROVIDERS: Emergency Provider Emergency Medicine Emergency Medical Services; Visit Provider Student in an Organized Health Care Education/Training Program | DX: R55 Syncope and collapse (principal); R00.2 Palpitations; I48.0 Paroxysmal atrial fibrillation; I50.32 Chronic diastolic (congestive) heart failure | CPT/HCPCS: 99223; 99238 ==

== ENCOUNTER → 2024-06-17 23:09 | Outpatient (BNV) | payer MEDICARE, SELFPAY | PROVIDERS: Admitting Provider Student in an Organized Health Care Education/Training Program; Emergency Provider Emergency Medicine Emergency Medical Services; Visit Provider Internal Medicine Cardiovascular Disease | DX: R00.2 Palpitations (principal); I48.0 Paroxysmal atrial fibrillation; I50.32 Chronic diastolic (congestive) heart failure | CPT/HCPCS: 99222 ==